=== PATIENT | female | born 1990 | race Caucasian/White ===

== ENCOUNTER 2022-05-30 09:21 | Day surgery (SDC) | payer MEDICAID, SELFPAY ==
[2022-05-30] VITALS (7 sets, daily range): BP systolic 98–124; BP diastolic 59–84; PULSE 64–78; RESP 16; TEMP 36.2–37.5; O2SAT 94–99; BMI 32.1
[2022-05-30] MEDS: Lactated Ringers 1,000 ML 15 ML IV (09:50)
[2022-05-30] MEDS: Cefazolin 2 GM in 0.9% Normal Saline 100 ML IV (12:56)
--- NOTE | 2022-05-30 13:12 | RAD_ITS ---
EXAM: XR LEFT WRIST, 2 VIEWS CLINICAL INDICATION: FX TECHNIQUE: Frontal and lateral views of the left wrist. This report was created using Scrip-t report generation technology. COMPARISON: None. FINDINGS: BONES/JOINTS: 3 fluoroscopic spot views of the left wrist demonstrate ventral compression plate in place along the distal radius. Bony structures are well aligned. Joint spaces are intact. SOFT TISSUES: Diffuse soft tissue prominence. RAD/Wrist 2 Views IMPRESSION: Satisfactory postop changes. Electronically Signed: Urban Louis MD at 14:54 EDT ,
--- NOTE | 2022-05-30 14:42 | OP.PCM_ITS ---
Problems Associated Problem List Diagnoses (1) Fracture of left distal radius: Report of Operation Date of Procedure: 05/30/22 Pre-Operative Diagnosis: Left distal radius fracture Post-Operative Diagnosis: Same Surgery/Procedure Performed:: Left distal radius open reduction internal fixation Surgeon: Ugo March Type of Anesthesia: Block,Regional and General Anesthesiologist: Bigg Laurent Estimated Blood Loss (mL): 50 Description of Procedure: The patient was brought to the operating room theater. They were placed supine on the operating table. Hand table to the patient's side. Tourniquet applied to the left upper extremity appropriately padded. All bony prominences appropriately padded. SCDs on the legs. 2 g of IV Ancef administered prior to the start of the case. General anesthesia induced. Left upper extremity prepped and draped in usual sterile fashion allowing over 3 minutes drying time prior to draping. Preoperative timeout was performed to confirm the site patient and the surgery. I began by exsanguinating the limb with a sterile Esmarch bandage and inflating the tourniquet to 250 mmHg. I made a standard volar incision centered over the distal aspect of the FCR tendon terminating at the wrist crease. I carried the dissection down through skin and subcutaneous tissue achieved meticulous hemostasis. I incised the fascia tendon sheath overlying FCR retracted this radially cauterized any crossing vessels using bipolar cautery. I incised the sub sheath in line with the skin incision. I retracted the flexor pollicis longus tendon ulnarly. Identified pronator quadratus. Identified the distal aspect of the joint distal radius articular surface. I made a L-shaped incision with each limb more on the radial side of the pronator quadratus and retracted this ulnarly. I slightly released the insertion of the brachial radialis along the radial styloid. Identified the fracture site. I mobilized the fracture. I cleared away any interposed fracture hematoma and periosteum. I achieved appropriate reduction using freer instrument. I took intraoperative AP lateral and true lateral 30 degrees flexed joint views. I used manual traction and direct manipulation to achieve appropriate reduction. I used Synthes precontoured 3 proximal hole volar narrow distal radius locking plate. Placed this on the volar aspect of the bone and used 2 K wires to appropriately seat the plate in both the AP and lateral planes. Next I used a cortical screw distally in the second from most radial screw hole to achieve screw purchase and plate flush down to the bone. I then inserted 3 more distal locking screws all 2.4 mm. Use the torque limiter to fully seat these into bone. Next a use fully threaded cortical nonlocking screws in the proximal 3 holes of the plate. Reduction was anatomic volar tilt was appropriately maintained. Final radiographs taken. Wrist range of motion no crepitus. Thorough irrigation was performed. Tourniquet let down at 60 minutes. Bleeding hemostased. Subcutaneous tissue closed with 2-0 Vicryl sutures and skin with 3- 0 Monocryl. Skin cleaned with wet and dry dressing. No local anesthesia used patient had a block. Steri-Strips applied followed by Adaptic 4 x 4 gauze cast padding and a volar fiberglass prefabricated splint with the wrist in neutral and over wrapped with 4 inch Steve bandage. Patient was woken up from the general anesthetic transferred off the operating room table and taken to postanesthetic care unit in stable condition. All sponge needle instrument counts were correct. Plan for the patient discharged home according to day surgery criteria and follow-up in the office in approximately 1 week time. We will send in a prescription for oral combine Tylenol narcotic medication and appropriate counseling given to the patient for high risk addiction or other side effects given the fact that they have a history of drug abuse we really I cautioned her against any more than is absolutely necessary and we had signed a form in the office in regards to this she could try simply Tylenol or anti-inflammatories for pain control as well. Complications none Admit VTE Documentation VTE Present on Admission: No VTE Mechan Device Prophylaxis: SCD's Reason prophylaxis not ordered:: Treatment Not Indicated Procedures Musculoskeletal 20xxx-29xxx: Other Procedure See Report
--- NOTE | 2022-05-30 14:50 | DCINST_ITS ---
Discharge Instructions Diet Discharge Diet: No restrictions Activity Discharge Activity: Return to Normal Activity and May Not Drive Weight Bearing Status: No weight bearing Lifting Restrictions: arturo lifting Keep extremity elevated above heart level: Operative Extremity Additional Activity Instructions:: ok for finger and elbow ROM Dressing / Incision Call your doctor if your incision/area has: Continuous Slow Oozing, Sudden Increased Bleeding, Increased Pain/ Swelling, Increased Redness, Foul Smelling Discharge and Swelling at the incision site Change Dressing in: leave in place till F/U Follow Up Care Please Follow Up With: Ugo March MD When: 2 days or a week, per patient preference Test Results: Test results from this visit will be discussed in further detail at your follow- up appointment, if applicable. Discharge Plan Admission Attending Provider: Ugo March Primary Care Provider: Allen Winkler Instructions Patient Instructions: Wrist Fracture Discharge Orders/Prescriptions Prescriptions: New oxycodone-acetaminophen [Percocet] 5-325 mg tablet 1 tab PO Q4H MDD 6 PRN (Reason: pain) 7 Days Qty: 30 0RF No Action ibuprofen 200 mg capsule 200 mg PO Q6H PRN (Reason: Pain) acetaminophen [Tylenol] 325 mg Capsule 325 mg PO Q6H PRN (Reason: Pain) Referrals / Follow Up: Allen Winkler MD [Primary Care Provider] - Ugo March MD [Med Staff - Active Staff] - Disposition Disposition (needs filled in before D/C Order can be placed): Home, Self Care
--- NOTE | 2022-05-30 14:54 | DCINST_ITS ---
Discharge Instructions Diet Discharge Diet: No restrictions Activity Weight Bearing Status: No weight bearing Keep extremity elevated above heart level: Operative Extremity Additional Activity Instructions:: ok for finger and elbow ROM Dressing / Incision Call your doctor if your incision/area has: Continuous Slow Oozing, Sudden Increased Bleeding, Increased Pain/ Swelling, Increased Redness, Foul Smelling Discharge and Swelling at the incision site Change Dressing in: leave in place till F/U Follow Up Care Please Follow Up With: Ugo March MD When: 2 days or a week, per patient preference Test Results: Test results from this visit will be discussed in further detail at your follow- up appointment, if applicable. Discharge Plan Admission Attending Provider: Ugo March Primary Care Provider: Allen Winkler Instructions Patient Instructions: Wrist Fracture Discharge Orders/Prescriptions Prescriptions: New oxycodone-acetaminophen [Percocet] 5-325 mg tablet 1 tab PO Q4H MDD 6 PRN (Reason: pain) 7 Days Qty: 30 0RF No Action ibuprofen 200 mg capsule 200 mg PO Q6H PRN (Reason: Pain) acetaminophen [Tylenol] 325 mg Capsule 325 mg PO Q6H PRN (Reason: Pain) Referrals / Follow Up: Allen Winkler MD [Primary Care Provider] - Ugo March MD [Med Staff - Active Staff] - Disposition Disposition (needs filled in before D/C Order can be placed): Home, Self Care
--- NOTE | 2022-05-31 14:16 | HP.PCM_ITS ---
HPI - General HPI Narrative DANA HENLEY, is a 32 F who presents for ORIF left DRF. no changes to health or plan. wishes to proceed RAB discussed. marked Left UE. no further questions. Intake Visit Reasons:?LEFT WRIST Accompanied by: Self Is patient in pain?: Yes Pain scale (1-10): 8 Allergies aspirin Adverse Reaction (Verified 05/04/22 10:15) Rash Medications ibuprofen 200 mg capsule 200 mg PO Q6H PRN 05/25/22 [History Confirmed 05/25/22] oxycodone-acetaminophen 5 mg-325 mg tablet 1 tab PO 05/25/22 [History Confirmed 05/25/22] PFSH Medical History?(Updated 05/25/22 @ 09:45 by Ugo March MD) Contact with or suspected exposure to other viral communicable disease COVID-19 Diarrhea Emesis Encounter for screening for COVID-19 Fracture of left distal radius Gastritis Gastroenteritis Left wrist pain Severe headache Stomach ache URI (upper respiratory infection) Surgical History?(Updated 05/25/22 @ 08:50 by Su Church) Hx of section Hx of elbow surgery Family History?(Updated 05/25/22 @ 08:50 by Su Church) Mother Heart diseaseBrother Diabetes Social History? Smoking Status:? Former smoker quit date: 06/05/20 pack-years: 1 Tobacco: How many years used:? 10 HPI LEFT WRIST Details: Parts of this documentation were recorded by a scribe, this documentation accurately reflects the service provided and the decisions made by me, Dr. Ugo March MD 05/25/22 0842. DANA HENLEY is a 32 year old F here today for? left wrist pain. 5 days ago had a FOOSH injur left side tripped over a log. RHD. Seen in [facility], xrays stated fracture patient does not have disc or report.? Lives in [facility], used to live in [place]. No IVDU, but used to 7 yrs ago , no alcohol or tobacco per the patient. Works in a [employer] - [employer]. Ortho Exam General General: Yes no acute distress and No well groomed Neurologic: Yes alert and Yes oriented x3 Psychologic: Yes reasonable and appropriate Right Wrist/Hand Skin/Wound: Yes Swelling and Yes Ecchymosis Left Wrist/Hand Skin/Wound: Yes CDI, Yes Swelling, Yes Ecchymosis, Yes capillary refill normal and No erythema Left Wrist: Yes TTP Fracture site; No ROM-Extension 0-60, No ROM-Flexion 0-80, No ROM-Pronation 0-80 and No ROM-Supination 0-90 Motor: EPL: 4, FDP-2: 4, 1st Dorsal Interosseous: 4 and APB: 4 Sensation: Radial: I, Ulnar: I and Median: I WRIST: forearm soft, moderate swelling at hand and wrist. in a [place] splint that i removed for xrays. Supplemental Info MR#:? [id number] Acct: [id number] Name:? DANA HENLEY Rep #: [id number] :?? 1990 F 32 ? From:? ? Rui Quevedo MD PCP: ? Status: DEP AMB Study: Wrist min 3 Views ? Date of Exam: 05/25/22 Exam# [id number] ? Ordering Dr:? Ugo March MD STUDY: ? X-RAY - LEFT WRIST REASON FOR EXAM: ? Female, 32 years old.? Pain TECHNIQUE: ? 3 view(s) of the wrist were obtained. COMPARISON: ? None. FINDINGS: There is a subacute healing distal radial fracture with persistent soft tissue swelling.? Alignment is anatomic, continued follow-up recommended to assure complete osseous union.? No demonstrated ulnar variance. Normal visualized distal ulna.? Normal radiocarpal articulation.? Normal distal radioulnar articulation.? Normal carpal bones.? Normal carpal articulations. Normal carpometacarpal articulation of the thumb.? Normal second through fifth carpometacarpal articulations. Normal visualized metacarpal bones. The soft tissue structures are unremarkable. RAD/Wrist min 3 Views IMPRESSION: Subacute healing distal radial fracture in anatomic alignment, follow-up recommended to assure complete osseous ? Electronically Signed: Bryan Quevedo MD at 9:38 EDT , MR#:? [id number] Acct: [id number] Name:? DANA HENLEY Rep #: [id number] :?? 1990 F 32 ? From:? ? Rui Quevedo MD PCP: ? Status: DEP AMB Study: Hand Min 3 Views ? Date of Exam: 05/25/22 Exam# [id number] ? Ordering Dr:? Ugo March MD STUDY: ? X-RAY - LEFT HAND REASON FOR EXAM: ? Female, 32 years old.? Pain and stiffness TECHNIQUE: ? 3 view(s) of the hand. COMPARISON: ? None. FINDINGS: Normal radiocarpal articulation.? Normal distal radioulnar joint. Normal visualized carpal bones.? Normal carpal articulations Normal carpometacarpal articulation of the thumb.? Normal second through fifth carpometacarpal joints. Normal metacarpi. Normal metacarpophalangeal joint of the thumb.? Normal interphalangeal joint of the thumb.? Normal proximal and distal phalanges of the thumb. Normal metacarpophalangeal joints of the second through fifth fingers. Normal proximal and distal interphalangeal joints of the second through fifth fingers.? Normal phalanges of the second through fifth fingers. The soft tissue structures are unremarkable. RAD/Hand Min 3 Views IMPRESSION: Normal x-ray examination of the hand. ? Electronically Signed: Bryan Quevedo MD at 9:27 EDT , ? I reviewed the radiographs.? There is a transverse extra-articular fracture of the distal radius with dorsal angulation of approximately 20 degrees. No scaphoid fracture. Coding Level of Care Code Off vis,new,level 4 Diagnoses Left wrist pain? M25.532 Fracture of left distal radius? S52.502A Time Spent (min) 45 Assessment and Plan Assessment and Plan (1) Left wrist pain: ?Status:?Acute (2) Fracture of left distal radius: ?Status:?Acute ?Plan: 32-year-old female with a left distal radius fracture with dorsal angulation of the articular surface.? We discussed the pros and cons risks and benefits of nonoperative management versus close reduction versus open reduction internal fixation with volar plating.? Due to the amount of angulation of the articular surface typically upper range of acceptable limits would only be about 5 to 10degrees to my own measurements this is up to 20 degrees therefore this is typically recommended for surgery in a young active person, to diminish risk of OA shelter + mal alignment of the joint, and to initiate early ROM to avoid stiffness.? We discussed the pros and cons risks and benefits of open reduction internal fixation left distal radius (volar plating).? Patient was to proceed signed consent form for surgery.? They are part of a drug rehab protocol substance abuse program apparently related to according to the patient a marijuana conviction however they will possibly need oral narcotic postoperative medications I did sign and asked to have this scanned into the chart a notice of participation in substance abuse program.? For now we will place the patient back into a splint and try to get the case put on within the next week.? Discussed recovery 6 weeks for fracture healing and up to 3 months before resuming heavy lifting and gripping with the upper extremity. Pros and cons risks and benefits were discussed with the patient including but not limited to infection, pain, stiffness, bleeding, damage to surrounding structures, neurovascular injury, recurrence or retear, failure or wear of hardware or fixation, instability, fracture, deep vein thrombosis and pulmonary embolism, anesthetic risks, patient dissatisfaction, irritation or tendon rupture, need for further surgery and other risks.? Patient understood and wished to proceed with surgery, and signed the informed consent documentation. [facility] Medical History (Updated 05/28/22 @ 10:00 by Melissa Ca) Anxiety Contact with or suspected exposure to other viral communicable disease COVID-19 Depression Diarrhea Emesis Encounter for screening for COVID-19 Former smoker Fracture of left distal radius Gastritis Gastroenteritis Left wrist pain Severe headache Stomach ache Thyroid disease URI (upper respiratory infection) Home Medications ibuprofen 200 mg capsule 200 mg PO Q6H PRN Pain 05/25/22 [History Last Taken Unknown] acetaminophen 325 mg capsule (Tylenol) 325 mg PO Q6H PRN Pain 05/28/22 [History Last Taken Unknown] oxycodone-acetaminophen 5 mg-325 mg tablet (Percocet) 1 tab PO Q4H PRN pain 1 week #30 tabs 05/30/22 [Rx Last Taken Unknown] Allergy/AdvReac Type Severity Reaction Status Date / Time aspirin AdvReac Rash Verified 05/30/22 09:44 Family History (Updated 05/25/22 @ 08:50 by Su Church) Mother Heart disease Brother Diabetes Surgical History (Updated 05/28/22 @ 10:00 by Melissa Ca) Hx of section Hx of elbow surgery Hx of tubal ligation Social History (Updated 05/25/22 @ 08:51 by Su Church) Smoking Status: Former smoker quit date: 06/05/20 pack-years: 1 Tobacco: How many years used: 10 Vital Signs Vital Signs Vital Signs: 05/30/22 14:45 05/30/22 15:00 05/30/22 15:15 Temperature 97.3 F L Temperature Source Temporal Pulse Rate 72 70 65 Respiratory Rate 16 16 16 Respiratory Pattern Normal Blood Pressure 124/84 H 122/80 H 102/68 Blood Pressure Mean 97 94 79 Blood Pressure Source Monitor Monitor Monitor Blood Pressure Position Semi-Fowlers Semi-Fowlers Semi-Fowlers Blood Pressure Location Right Arm Right Arm Right Arm Baseline BP 111/64 111/64 111/64 Pulse Ox 97 94 94 Oxygen Delivery Method Room Air Room Air Room Air 05/30/22 15:30 05/30/22 15:38 05/30/22 15:52 Temperature 97.2 F L Temperature Source Temporal Pulse Rate 78 64 Respiratory Rate 16 16 Respiratory Pattern Normal Blood Pressure 98/59 L 105/64 Blood Pressure Mean 72 77 Blood Pressure Source Monitor Monitor Blood Pressure Position Semi-Fowlers Semi-Fowlers Blood Pressure Location Right Arm Right Arm Baseline BP 111/64 111/64 Pulse Ox 99 96 Oxygen Delivery Method Room Air Room Air 05/30/22 16:06 Temperature Temperature Source Pulse Rate Respiratory Rate Respiratory Pattern Blood Pressure Blood Pressure Mean Blood Pressure Source Blood Pressure Position Blood Pressure Location Baseline BP 111/64 Pulse Ox Oxygen Delivery Method Weight Weight: 169 lb 12.095 oz Body Mass Index (BMI) 32.1 Results Radiology Impression Wrist X-Ray 05/30/22 13:12 IMPRESSION: Satisfactory postop changes. Electronically Signed: Urban Louis MD at 14:54 EDT ,
== END 2022-05-30 16:07 | disposition home or self-care (01) ==
LOC: SDC 09:23 → AC 09:24
PROVIDERS: PCP Family Medicine; Referring Provider Orthopaedic Surgery Sports Medicine; Visit Provider Orthopaedic Surgery Sports Medicine
PROC: (CPT 25607; principal; 2022-05-30 10:50)
DX: S52.502A Unspecified fracture of the lower end of left radius, initial encounter for closed fracture (principal); W22.8XXA Striking against or struck by other objects, initial encounter; Z86.16 Personal history of COVID-19; Z87.891 Personal history of nicotine dependence
CPT/HCPCS: 25607; 01830; 64417; 73100; 76000; C1713; J7120; J2405